=== PATIENT | female | born 1935 | race Caucasian/White ===

== ENCOUNTER 2018-10-06 05:58 | Day surgery (SDC) | payer MEDICARE, OTHER ==
[2018-10-05 10:08] VITALS: Ht 157.5 cm; Wt 54.9 kg
[~2018-10-06] VITALS: Ht 157.5 cm; Wt 54.9 kg
[2018-10-06] VITALS (14 sets, daily range): BP systolic 115–165; BP diastolic 60–84; PULSE 18–75; RESP 15–34
[2018-10-06] MEDS ORDERED: BUPIVACAINE 0.5% (SDV) 30 ML INJ ONE (06:43)
[2018-10-06] MEDS ORDERED: POLYMYXIN/BACITRACIN 1L IRRIG ONE (06:45)
[2018-10-06] MEDS ORDERED: LACTATED RINGER'S 1,000 ML IV* ONE (07:00)
[2018-10-06] MEDS ORDERED: ADV10050 INHALATION (07:03)
[2018-10-06] MEDS ORDERED: MONT10TA24 PO (07:03)
[2018-10-06] MEDS ORDERED: NASO17 NASAL (07:03)
[2018-10-06] MEDS ORDERED: VIT E PO (07:03)
[2018-10-06] MEDS ORDERED: EZET1TAB69 PO (07:03)
[2018-10-06] MEDS ORDERED: LEVO75TA5 PO (07:03)
[2018-10-06] MEDS ORDERED: VIT C PO (07:03)
[2018-10-06] MEDS ORDERED: TRAV4OP25 BOTH EYES (07:03)
--- NOTE | 2018-10-06 07:21 | PREAC ---
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 not on B-Andrez Reported Medications [Vit E] No Conflict Check, 100 PO DAILY 10/06/18 [Vit C] No Conflict Check, 100 MG PO DAILY 10/06/18 Travoprost* (Travatan*) 0.004%-2.5 Ml Opht, 1 DROP BOTH EYES QHS, #1 BOTTLE 10/06/18 Montelukast Sodium* (Montelukast Sodium*) 10 Mg Tablet, 10 MG PO QHS, #30 TAB 10/06/18 Mometasone Furoate* (Nasonex*) 50 Mcg/Rea - 17 Gm Rea.pump, 2 SPRAY NASAL DAILY, #1 BOTTLE TO EACH NOSTRIL 10/06/18 Levothyroxine Sodium* (Levothyroxine Sodium*) 75 Mcg Tablet, 75 MCG PO BEFORE BREAKFAST, #30 TAB 10/06/18 Salmeterol Xinaf-Fluticasone* (Advair*) 100/50 Diskus Inhaler, 1 INH INHALATION BID, #1 INHALER 10/06/18 Ezetimibe/Simvastatin (Ezetimibe-Simvastatin 10-40 mg) 1 Each Tablet, 1 EACH PO DAILY, TAB 10/06/18 Current Medications Lactated Ringer's 1,000 ml @ 20 mls/hr Q24H ONCE IV* Last administered on 10/06/18at 07:06; Admin Dose 20 MLS/HR; Start 10/06/18 at 07:00; Stop 10/07/18 at 06:59 Meds reviewed: Yes Allergies Coded Allergies: Sulfa (Sulfonamide Antibiotics) (Verified Allergy, Unknown, 5/2/19) fluticasone furoate (Verified Allergy, Unknown, 10/06/18) guaifenesin (Verified Allergy, Unknown, 10/06/18) telithromycin (Verified Allergy, Unknown, 10/06/18) vilanterol (Verified Allergy, Unknown, 10/06/18) amoxicillin (Verified Adverse Reaction, Unknown, NAUSEA, 10/06/18) azithromycin (Verified Adverse Reaction, Unknown, STOMACH UPSET, 10/06/18) ibuprofen (Verified Adverse Reaction, Unknown, VERTIGO, 10/06/18) Uncoded Allergies: CAROZYME (Adverse Reaction, Unknown, 10/06/18) Allergies Reviewed: Yes Labs/Studies Labs Reviewed: Reviewed by anesthesiologist test: N/A Studies: ECG Pre-procedure Exam Last vitals Vital Signs Date Temp Pulse Resp B/P (MAP) Pulse Ox O2 O2 Flow FiO2 Time Delivery Rate 10/06/18 97.4 75 20 115/84 96 Room Air 06:12 (94) Airway: Adequate mouth opening, Adequate thyromental dist Mallampati: Mallampati II Teeth: Normal Lung: Normal Heart: Normal ASA Physical Status ASA physical status: 3 Emergency: None Planned Anesthetic General/MAC: MAC Planned Pain Management Local by surgeon Pre-operative Attestations Prior to commencing anesthesia and surgery, the patient was re-evaluated, there was verification of: *The patient's identity *The results of appropriate recent lab work and preoperative vital signs *The above evaluation not changing prior to induction *Anesthetic plan, risk benefits, alternative and complications discussed with patient/family; questions answered; patient/family understands, accepts and wishes to proceed. ALYSSA JONES RESIDENTIAL SALES REPRESENTATIVE October 06, 2018 07:21
[2018-10-06] MEDS ORDERED: FENTAnyl 50 MCG/ML VIAL ONE (07:30)
[2018-10-06] MEDS ORDERED: MIDAZOLAM 1 MG/ML 2 ML INJ ONE (07:30)
--- NOTE | 2018-10-06 07:48 | HPN ---
Date/Time of Note Date/Time of Note DATE: 10/06/18 TIME: 07:48 Interval H&P Admission Note Pt. seen H&P reviewed: No system changes BENJIE KENNEDY October 06, 2018 07:48
[2018-10-06] MEDS ORDERED: CEFAZOLIN 1 GM INJ ONE (08:09)
[2018-10-06] MEDS ORDERED: LIDOCAINE 2% (SDV) 5 ML INJ ONE (08:09)
[2018-10-06] MEDS ORDERED: PROPOFOL 40 ML ONE (08:09)
[2018-10-06] MEDS ORDERED: ONDANSETRON 4 MG INJ ONE (08:29)
[2018-10-06] MEDS ORDERED: DEXAMETHASONE 4 MG/ML 5 ML INJ ONE (08:42)
--- NOTE | 2018-10-06 08:53 | OPPN ---
Date/Time of Note Date/Time of Note DATE: 10/06/18 TIME: 08:52 Operative Report Preoperative Diagnosis Right thumb MP joint dislocation with rupture of ulnar collateral ligament and volar plate Postoperative Diagnosis Right thumb MP joint dislocation with rupture of ulnar collateral ligament and volar plate Operation/Procedure Performed Open reduction of Right thumb MP joint dislocation with repair of ulnar collateral ligament and volar plate Pinning of right thumb MP joint Surgeon see signature line school psychologist assistant none Anesthesia: general Estimated blood loss: 0 - 10 ml's Transfusion Required none Specimen none Grafts/Implants none Complications none BENJIE KENNEDY October 06, 2018 08:53
--- NOTE | 2018-10-06 08:57 | PAC ---
Date/Time of Note Date/Time of Note DATE: 10/06/18 TIME: 08:56 Post-Anesthesia Notes Post-Anesthesia Note Last documented vital signs Vital Signs Date Temp Pulse Resp B/P (MAP) Pulse Ox O2 O2 Flow FiO2 Time Delivery Rate 10/06/18 98.2F 64 20 140/77 100 FM 6L 08:53 Activity: WNL Respiratory function: WNL Cardiovascular function: WNL Mental status: Baseline Pain reasonably controlled: Yes Hydration appropriate: Yes Nausea/Vomiting absent: Yes ALYSSA JONES CRNA October 06, 2018 08:57
[2018-10-06] MEDS ORDERED: MEPERIDINE 25 MG INJ IV PRN (09:00)
[2018-10-06] MEDS ORDERED: FENTAnyl 50 MCG/ML VIAL IV PRN (09:00)
[2018-10-06] MEDS ORDERED: HYDROmorphONE 1 MG/5 ML IV SYRINGE IV PRN (09:00)
[2018-10-06] MEDS ORDERED: ONDANSETRON 4 MG INJ IV PRN (09:00)
--- NOTE | 2018-10-06 10:41 | OPR ---
DATE OF OPERATION: 10/06/2018 PREOPERATIVE DIAGNOSES: 1. Right thumb metacarpophalangeal joint dislocation. 2. Rupture of right thumb volar plate at the metacarpophalangeal joint. 3. Possible rupture of the collateral ligaments. POSTOPERATIVE DIAGNOSES: 1. Right thumb metacarpophalangeal joint dislocation. 2. Rupture of right thumb volar plate at the metacarpophalangeal joint. 3. Rupture of the right thumb ulnar collateral ligament at the metacarpophalangeal joint. PROCEDURES PERFORMED: 1. Open reduction of right thumb metacarpophalangeal joint dislocation. 2. Repair of right thumb volar plate at the metacarpophalangeal joint. 3. Repair of right thumb ulnar collateral ligament at the metacarpophalangeal joint. 4. Pinning of the right thumb metacarpophalangeal joint. SURGEON: Benjie Kennedy M.D. ANESTHESIA: General plus local. OPERATIVE FINDINGS: Dorsal dislocation of the right thumb metacarpophalangeal joint with volar plate rupture of the ulnar collateral ligament. INDICATION FOR PROCEDURE: An 83-year-old female with injury to the right thumb, who was seen in [facility] and diagnosed with a dislocation of the thumb. We discussed the options and the patient wanted to attempt reduction in the office. I was unable to achieve reduction in the office despite adequate a nesthesia. We did discuss further options and the patient elected to proceed with surgical intervent ion, understanding risks and benefits. DESCRIPTION OF PROCEDURE: The patient was seen in the preoperative area. All further questions were answered. Again, she gave informed consent, understanding the risks and benefits. She was taken to operative suite in the supine position. She was placed under general anesthesia, and tourniquet nikki jenny in the right upper extremity. Ancef 2 grams IV was given, and right upper extremity was prepped with ChloraPrep stick and draped in usual sterile fashion. Esmarch bandage was used to exsanguinate the extremity and tourniquet inflated to 250 mmHg. Attention was first turned to the volar aspect of the right thumb MP joint with a zigzag incision across the MP crease. Sharp dissection carried down through skin and superficial dermis. Tenotomy scissor divided the soft tissues overlying the radial and ulnar digital nerves, which were protected. The A1 reid was released in order to access the M P joint. The FPL tendon was retracted and the volar plate was found to be ruptured. I was unable to get adequate visualization from the volar aspect and decision was made to do a dorsal approach as we ll. A longitudinal incision over the dorsal aspect of the MP joint was utilized with sharp dissectio n carried down through skin and subcutaneous tissue. The EPL and EPB tendons were retracted and prot ected. The dorsal joint capsule was incised and there was interposing capsular tissue as well as vol ar plate within the joint. This was cleared out from the joint and I was able to reduce the joint in to an anatomic position. The ulnar collateral ligament had a rupture off of the proximal aspect at t he metacarpal head and this was repaired using 4-0 Monocryl suture. I then repaired the volar plate as well using 4-0 Monocryl suture. The radial collateral ligament was intact. In order to maintain reduction the joint was pinned in 30 degrees of flexion with a 0.045 K-wire driven retrograde from th e proximal phalanx into the metacarpal head. This achieved appropriate alignment of the metacarpopha langeal joint. The pin was cut short. Wounds were copiously irrigated and skin closed with 5-0 nylo n. Xeroform placed over the wounds followed by sterile gauze, Webril, and a short arm thumb spica sp lint. Tourniquet deflated after 34 minutes. The patient was awakened from anesthesia. She was take n out from the postoperative suite in stable condition, tolerated procedure well without complication . SPECIMENS: None. ESTIMATED BLOOD LOSS: 5 mL. COUNTS: Sponge, instrument, needle counts correct. TOURNIQUET TIME: 34 minutes. CONDITION ON DISCHARGE: Stable. The patient was given a refill of the prescription for pain medication for surgery today. Dictated By: BENJIE CORLEY/SHANON Conf#: [id number] DID#: [id number] CC: BENJIE KENNEDY MD;*EndCC*
== END 2018-10-06 10:40 | disposition home or self-care (01) ==
LOC: SDS 05:58
PROVIDERS: ATTEND Orthopaedic Surgery Hand Surgery
DX: S63.114A Dislocation of metacarpophalangeal joint of right thumb, initial encounter (principal); S63.641A Sprain of metacarpophalangeal joint of right thumb, initial encounter; X58.XXXA Exposure to other specified factors, initial encounter; E03.9 Hypothyroidism, unspecified; J45.909 Unspecified asthma, uncomplicated
CPT/HCPCS: 26540; 73130; C1713; J0690; J1100; J2405; J3010; J2250